=== PATIENT | female | born 1980 | race Caucasian/White ===

== ENCOUNTER 2024-10-27 19:28 | Emergency (ER) | payer BC, SELFPAY ==
[2024-10-27 19:42] VITALS: BP 169/101
[2024-10-27 20:29] VITALS: BP 148/91
[2024-10-27 21:00] VITALS: BP 138/93
[2024-10-27] MEDS: TORADOL 30 MG IV (21:00)
[2024-10-27] MEDS: ZOFRAN 4 MG IV (21:01)
--- NOTE | 2024-10-27 21:04 | ED.GENMED ---
History of Present Illness
General
Chief Complaint: Abdominal Symptoms
Source: patient
Time Seen by Provider: 10/27/24 20:23
History of Present Illness
History of Present Illness:
44-year-old female with past medical history of migraines, anxiety and depression presenting the emergency department for relatively sudden onset nausea vomiting and diarrhea that started around 3:00 this afternoon. Patient notes that symptoms
initially were just vomiting but upon coming to the emergency department noted she started with watery diarrhea. No known sick contacts however patient does note 2 weeks ago she was in [place] and developed a upper respiratory infection,
completed a course of antibiotics this past Tuesday and has been feeling much better. Today patient went out to lunch with her yoga group and shortly after returning home symptoms started. Nobody else at the lunch seem to be ill per patient and
sister who is here with her. Patient did not take anything for symptoms prior to arrival. She also endorses associated generalized abdominal cramping.
Past History
Past History
ED Past Medical History: HTN and Other (Herniated disc in the back)
ED Past Surgical History: Appendectomy, Gynecological, Orthopedic and Urological
Social History
Tobacco: Non-smoker
Alcohol: Occasional
Drug: None
Personal:
Living: with family
Review of Systems
Review of Systems
All Other Systems: ROS reviewed and negative except as documented in HPI and ROS
Phy Exam
Physical Exam
Physical Exam:
GENERAL: Alert , in no apparent distress but does appear uncomfortable
EYE: clear conjunctiva b/l
HEAD: NCAT
ENT: o/p clr, mmm.
CARDIAC: Tachycardic rate and rhythm normal
LUNGS: Clear breath sounds bilaterally, no acute respiratory distress, no wheezes/rales/rhonchi
ABDOMEN: Soft, generally tender, no r/g, no cvat
NEUROLOGICAL: Alert and oriented
SKIN: Warm and dry, skin intact.
MUSCULOSKELETAL: well perfused.
PSYCH: Normal and appropriate interaction.
Scores
Heart Failure Risk
Heart Failure Risk Score: Not Applicable
Heart Score for Chest Pain Patients
STEMI patient?: Not applicable
Withdrawal Assessment of Alcohol
Withdrawal Assessment Completed?: Not applicable
Course
Orders/Labs/Results
Orders:
Orders
10/27/24 19:49
Test Result ONCE
10/27/24 19:50
Basic Metabolic Panel Urgent
Complete Blood Count/With Diff Urgent
HCG, Serum Qualitative Screen Urgent
Lipase Urgent
10/27/24 19:58
Ondansetron Orally Disint [Zofran Odt (Orally Disintegrating)] 4 mg .ROUTE .STK-MED ONE
10/27/24 20:39
Ketorolac [Toradol] 30 mg IV NOW STA
Ondansetron Injectable [Zofran] 4 mg IV NOW STA
10/27/24 22:20
0.9% Sodium Chloride 1000 ml [Nss] 1,000 ml IV BOLUS
10/27/24 22:31
Yybmk-Wqgx-Ndxqmko Urgent
10/27/24 22:44
STOOL [C difficile Antigen & Toxins] Urgent
SAVANAH Source: Feces/Stool
Specimen Description:
Date Specimen was Collected: 10/27/24
Time Specimen was Collected: 22:42
Stool Culture Urgent
SAVANAH Source: Feces/Stool
Specimen Description:
Date Specimen was Collected: 10/27/24
Time Specimen was Collected: 22:42
10/28/24 01:20
Morphine Sulfate 2 mg IV NOW STA
Ondansetron Injectable [Zofran] 4 mg IV NOW STA
Abnormal Lab Results
10/27/24
19:50
WBC 13.3 H 10^3/uL
(4.8-10.8)
Abs Immat Gran (auto) 0.1 H 10^3/uL
(0-0.05)
Absolute Neuts (auto) 11.7 H 10^3/uL
(1.4-6.5)
Absolute Lymphs (auto) 1.0 L 10^3/uL
(1.2-3.4)
Neutrophils % 87.8 H %
(42.2-75.2)
Lymphocytes % 7.7 L %
(20.5-51.1)
Glucose 123 H mg/dl
(70-99)
10/27/24 19:50
10/27/24 19:50
Vital Signs
Initial and Last Documented VS:
Initial Vital Signs
Temp Pulse Resp BP Pulse Ox
97.7 F 128 20 169/101 100
10/27/24 19:42 10/27/24 19:42 10/27/24 19:42 10/27/24 19:42 10/27/24 19:42
Last Documented Vital Signs
Temp Pulse Resp BP Pulse Ox
99.6 F 111 14 143/81 97
10/27/24 23:52 10/28/24 01:22 10/28/24 01:22 10/28/24 01:00 10/28/24 01:22
MDM/Problems Addressed
Differential Diagnosis Includes:
Gastroenteritis, foodborne illness, C. difficile colitis or other infectious colitis given recent antibiotic use, dehydration, electrolyte derangement
MDM/Problems Addressed:
44-year-old female presenting to the emergency department for evaluation of nausea vomiting and diarrhea with relatively sudden onset this afternoon. Generalized abdominal, noted. Mild tachycardia which is likely dehydration driven. Will treat
with fluids, Zofran and Toradol. Reassessment following. Patient was provided with a stool hat for her if she is to have a bowel movement so we can send for further evaluation.
*Pulse Oximetry
Patient hypoxic: no
*Critical Care Note
Total Time (30-74mins, 75-104mins- exclusive of procedures): Not Applicable
Comment
Comment:
Patient feeling somewhat improved following meds and fluids. Treating with second liter of IV fluids with anticipation that as long as she continues to feel better she will be discharged home.
Patient Management
Escalation/DeEscalation of care consider admission/obs:
Patient noting symptoms improved from initial arrival however starting to return. finished 2nd liter IVF. Will give additional dose morphine and zofran. Patient wants to still be discharged home
Update Note
Update Note:
Patient able to tolerate PO fluids. feels well enough to be discharged home. Rx for zofran sent to pharmacy. Aware of return precautions to the ER
ED Attending Note
-
Portions of this chart may have been created with voice recognition software.� Occasional wrong word or��sound alike� substitutions may have occurred due to the inherent limitations of voice recognition software.
Discharge Plan
Departure
Patient Disposition: Home (Routine Discharge)
Date of Disposition: 10/28/24
Time of Disposition: 01:50
Patient with high blood pressure during this ER visit?: Yes
Discharge Problem:
Nausea and vomiting, Diarrhea
Instructions: Nausea and Vomiting, Adult (DC)
Prescriptions:
New
ondansetron 4 mg tablet,disintegrating
4 mg PO TIDPRN PRN (Reason: nausea/vomiting) Qty: 10 0RF
No Action
cyclobenzaprine [Flexeril] 10 mg Tablet
10 mg PO BID
propranolol 10 mg Tablet
10 mg PO BID
sertraline [Zoloft] 25 mg Tablet
25 mg PO DAILY
hydroxyzine HCl 25 mg Tablet
25 mg PO DAILY
topiramate [Topamax] 100 mg Tablet
100 mg PO BID
Ubrelvy 100 mg Tablet
100 mg PO ONCE
Referrals:
Leah Chan MD [Family Provider] -
Interventions
Interventions:
*Risk Screen - Suicide Last Done: 10/27/24 19:47
*General Assessment Last Done: 10/27/24 19:47
*Neglect/Abuse Screening Last Done: 10/27/24 19:47
ED- Fall Risk Assessment Last Done: 10/27/24 23:57
*ED COVID-19 Vaccine History Last Done: 10/27/24 22:57
*Nursing Disposition Last Done: 10/28/24 02:17
NE-Jychuz-Nsklsbqujs Assessment Last Done: 10/27/24 23:57
Discharge Date and Time
Discharge Date/Time: 10/28/24 02:17
Print Language: EQUATORIAL GUINEAN
[2024-10-27 21:56] LABS: % Basophils 0.2 % (0-2); % Eosinophils 0.5 % (0-6); % Immature Granulocytes 0.4 % (0-0.5); % Lymphocytes 7.7 % (20.5-51.1); % Monocytes 3.4 % (1.7-9.3); % Neutrophils 87.8 % (42.2-75.2); Absolute Eosinophils 0.1 10^3/uL (0-0.7); Absolute Immature Granulocytes 0.1 10^3/uL (0-0.05); Absolute Monocytes 0.5 10^3/uL (0.1-0.6); Absolute Neutrophils 11.7 10^3/uL (1.4-6.5); Hematocrit 44.1 % (37.0-47.0); Hemoglobin 14.9 g/dL (12.0-16.0); Mean Corp Hgb Conc. 33.8 g/dL (33.0-37.0); Mean Corpuscular Hgb 28.7 pg (27.0-31.0); Mean Platelet Volume 9.2 fL (7.4-10.4); Nucleated Red Blood Cells % 0 %; Platelet Count 290 10^3/uL (130-400); Red Blood Cell Count 5.19 10^6/uL (4.20-5.40); Red Cell Dist. Width 13.4 % (11.5-14.5); White Blood Cell Count 13.3 10^3/uL (4.8-10.8)
[2024-10-27 21:59] LABS: HCG, Serum Qualitative Screen Negative
[2024-10-27 22:03] VITALS: BP 103/77
[2024-10-27 22:14] LABS: Blood Urea Nitrogen 15 mg/dl (7-17); Calcium 9.4 mg/dl (8.4-10.2); Carbon Dioxide 23 mmol/L (22-30); Chloride 103 mmol/L (98-107); Glucose 123 mg/dl (70-99); Lipase 76 U/L (23-300); Sodium 139 mmol/L (135-145); eGFR > 60.00
[2024-10-27 22:42] VITALS: BMI 38.2
[2024-10-27 22:52] LABS: ALT (SGPT) 17 U/L (0-35); AST (SGOT) 21 U/L (14-36); Albumin 4.1 g/dl (3.5-5.0); Alkaline Phosphatase 76 U/L (38-126); Direct Bilirubin 0.1 mg/dl (0.0-0.4); Total Bilirubin 0.6 mg/dl (0.2-1.3); Total Protein 6.7 g/dl (6.3-8.2)
[2024-10-27] MEDS: NSS 1000 IV (22:56)
[2024-10-27 23:52] VITALS: BP 147/76
[2024-10-28] VITALS: BP 146/84
[2024-10-28 01:00] VITALS: BP 143/81
[2024-10-28] MEDS: MORPHINE SULFATE 2 MG IV (01:25)
[2024-10-28] MEDS: ZOFRAN 4 MG IV (01:25)
== END 2024-10-28 02:17 | disposition home or self-care (01) ==
LOC: EMR 19:28
PROVIDERS: Emergency Medicine; Physician Assistant Medical; EMERGENCY PHYSICIAN Student in an Organized Health Care Education/Training Program; FAMILY PHYSICIAN Family Medicine
DX: R11.2 Nausea with vomiting, unspecified (principal); R19.7 Diarrhea, unspecified; F41.8 Other specified anxiety disorders; I10 Essential (primary) hypertension
CPT/HCPCS: 99283; 96374; 96375; 96376; 80048; 80076; 83690; 84703; 85025; 87045; 87046; 87324; 87427; 87449; 99284